=== PATIENT | male | born 1965 | race American Indian/Alaskan Native ===

== ENCOUNTER 2019-06-06 09:05 | Emergency (ER) | payer OTHER ==
[2019-06-06] MEDS ORDERED: ALTEPLASE 100 MG INJ KIT ONE (09:27)
--- NOTE | 2019-06-06 09:29 | Cat Scan Report ---
CT head without contrast INDICATION : MAIN: CODE STROKE [id number]. TECHNIQUE: Axial imaging performed from the skull apex through the skull base without the use of con trast. All CT scans at this location are performed using CT dose reduction for ALARA by means of aut omated exposure control. COMPARISON: None FINDINGS: Parenchyma: No acute intracranial hemorrhage or parenchymal abnormality. Ventricles: Ventricles are normal in size and appear symmetric. Soft tissues: Soft tissues including the orbits appear normal. Bones: No acute osseous abnormality. Sinuses: Sinuses and mastoid air cells are clear. IMPRESSION: No acute abnormality. COMMUNICATION: Time of Communication ([employer] DEPARTMENT/CDT): 8:25 am Licensed Practitioner Receiving Report: Dr. Ulloa Signer Name: Roney Atkinson MD Signed: 06/06/2019 9:25 AM Workstation Name: [id number]
--- NOTE | 2019-06-06 09:40 | Emergency Department Report ---
ED Neuro Deficit HPI - General Stated Complaint: STEMI Time Seen by Provider: 06/06/19 09:28 - History of Present Illness Initial Comments: [facility] Date of Service: 06/06/2019 08:56:45 Impression: Rule Out Acute Ischemic Stroke Left Hemispheric Infarct MCA Distribution Infarct Comments/Sign-Out: the patient's has had symptoms of confusion at least since 8:30 AM family is trying hard to determine a more refined last known normal but the patient was at work and able to drive but he arrived confused. It'll last known normal to be determined within the past 4-1/2 hours of course would consider acute thrombolytic therapy. For now we'll get stat CT angiogram of the head and neck to evaluate for possible large vessel occlusion. It sounds like the patient has had one episode in the past with similar symptoms although the diagnosis isn't 100% clear what was labeled. Metrics: Last Known Well: 06/05/2019 17:00:00 [facility] Notification Time: 06/06/2019 08:56:14 Arrival Time: 06/06/2019 09:05:30 Stamp Time: 06/06/2019 08:56:45 Time First Login Attempt: 06/06/2019 09:03:26 Video Start Time: 06/06/2019 09:03:26 Symptoms: speech disturbance R neglect NIHSS Start Assessment Time: 06/06/2019 09:15:30 Patient is not a candidate for tPA. Patient was not deemed candidate for tPA thrombolytics because of Last Well Known Above 4.5 Hours. Weight Noted by Staff: 338 lbs Video End Time: 06/06/2019 09:36:55 CT head showed no acute hemorrhage or acute core infarct. Clinical Presentation is Suggestive of Large Vessel Occlusive Disease, Recommendations are as Follows CTA Head and Neck. ED Physician notified of diagnostic impression and management plan on 06/06/2019 09:33:38 Our recommendations are outlined below. Recommendations: Activate Stroke Protocol Admission/Order Set Stroke/Telemetry Floor Neuro Checks Bedside Swallow Eval DVT Prophylaxis IV Fluids, Normal Saline Head of Bed Below 30 Degrees Euglycemia and Avoid Hyperthermia (PRN Acetaminophen) Initiate Aspirin 325 MG Daily Recommended Scan: MRI Head Echocardiogram - Transthoracic Echocardiogram Lipid Panel to Be Obtained, if Not Done in the Last 30 Days Therapies: Physical Therapy, Occupational Therapy, Speech Therapy Assessment When Applicable Dysphaghia Screen: Swallow Evaluation, Bedside NPO Until Swallow Evaluation DVT prophylaxis: Choice of Primary Team Disposition: Follow up with Teleneurology Follow up Sign Out: Discussed with Emergency Department Provider History of Present Illness: Patient is a 54 year old Male. 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 No one had talked to him throughout the restaurant shift leader with last known normal at 5 PM the night prior. They're trying to get a better timeframe by contacting his work. He has a right-sided lu-neglect with some leftward gaze and confusion. Apparently he had an episode in the past that was similar but they're not sure of the specific diagnosis. He does not take any blood thinners or antiplatelet. No history of known seizure. CT head showed no acute hemorrhage or acute core infarct. There is no history of hemorrhagic complications or intracranial hemorrhage. There is no history of Recent Anticoagulants. There is no history of recent major surgery. There is no history of recent stroke. Examination: Blood Glucose(120) 1A: Level of Consciousness - Alert; keenly responsive + 0 1B: Ask Month and Age - Aphasic + 2 1C: Blink Eyes & Squeeze Hands - Performs 0 Tasks + 2 2: Test Horizontal Extraocular Movements - Forced Gaze Palsy: Cannot Be Overcome + 2 3: Test Visual Butcher - No Visual Loss + 0 4: Test Facial Palsy (Use Grimace if Obtunded) - Normal symmetry + 0 5A: Test Left Arm Motor Drift - No Drift for 10 Seconds + 0 5B: Test Right Arm Motor Drift - No Drift for 10 Seconds + 0 6A: Test Left Leg Motor Drift - No Drift for 5 Seconds + 0 6B: Test Right Leg Motor Drift - No Drift for 5 Seconds + 0 7: Test Limb Ataxia (FNF/Heel-Wells) - No Ataxia + 0 8: Test Sensation - Normal; No sensory loss + 0 9: Test Language/Aphasia - Mute/Global Aphasia: No Usable Speech/Auditory Comprehension + 3 10: Test Dysarthria - Severe Dysarthria: Unintelligble Slurring or Out of Proportion to Aphasia + 2 11: Test Extinction/Inattention - Extinction to bilateral simultaneous stimulation + 1 NIHSS Score: 12 Patient was informed the Neurology Consult would happen via TeleHealth consult by way of interactive audio and video telecommunications and consented to receiving care in this manner. Due to the immediate potential for life-threatening deterioration due to underlying acute neurologic illness, I spent 35 minutes providing critical care. This time includes time for face to face visit via telemedicine, review of medical records, imaging studies and discussion of findings with providers, the patient and/or family. Dr Celsa Tay [facility] ADDENDUM: patient has near occlusion L MCA with thrombus not complete but recomomend transfer to [facility] patient for malignant edema and potentially to complete occlusion D/W ED MD - Related Data Allergies/Adverse Reactions: Allergies Allergy/AdvReac Type Severity Reaction Status Date / Time No Known Allergies Allergy Unverified 06/06/19 09:47 ED Review of Systems ROS: Stated complaint: STEMI Other details as noted in HPI ED Neuro Physical Exam - General Suspected Stroke: Yes - NIHSS Assessment Interval: Baseline 1a. Level of Consciousness: alert/keenly responsive 1b. LOC Questions: answers no questions correctly 1c. LOC Commands: performs no tasks correctly 2. Best Gaze: forced deviation 3. Visual: no visual loss 4. Facial Palsy: normal symmetrical movement 5b. Motor Arm Right: no drift 5a. Motor Arm Left: no drift 6a. Motor Leg Left: no drift 6b. Motor Leg Right: no drift 7. Limb Ataxia: absent 8. Sensory: normal 9. Best Language: mute/global aphasia 10. Dysarthria: mute/anarrthric 11. Extinction/Inattention: visual/tactile inattention Total Score: 12 Stroke Severity: Moderate Stroke ED Course Vital Signs 06/06/19 06/06/19 06/06/19 09:05 09:15 09:20 Temperature 98.4 F Pulse Rate 69 91 H Respiratory 18 18 Rate Blood Pressure Blood Pressure 145/60 168/114 [Right] O2 Sat by Pulse 100 100 99 Oximetry 06/06/19 06/06/19 06/06/19 09:30 09:45 10:00 Temperature Pulse Rate 97 H 69 81 Respiratory 25 H 100 H 18 Rate Blood Pressure 159/95 Blood Pressure 141/69 138/81 142/69 [Right] O2 Sat by Pulse 100 100 Oximetry 06/06/19 06/06/19 06/06/19 10:15 10:31 10:45 Temperature Pulse Rate 116 H 97 H Respiratory 15 28 H Rate Blood Pressure 159/95 135/67 138/76 Blood Pressure [Right] O2 Sat by Pulse 97 97 96 Oximetry 06/06/19 11:01 Temperature Pulse Rate 94 H Respiratory 22 Rate Blood Pressure 140/83 Blood Pressure [Right] O2 Sat by Pulse 96 Oximetry - Lab Data Result diagrams: 06/06/19 09:27 06/06/19 09:27 Lab Results 06/06/19 06/06/19 06/06/19 Range/Units 09:27 09:27 09:27 WBC 4.0 L (4.5-11.0) K/mm3 RBC 5.20 H (3.65-5.03) M/mm3 Hgb 15.2 (11.8-15.2) gm/dl Hct 45.9 H (35.5-45.6) % MCV 88 (84-94) fl MCH 29 (28-32) pg MCHC 33 (32-34) % RDW 14.7 (13.2-15.2) % Plt Count 307 (140-440) K/mm3 Lymph % (Auto) 38.1 H (13.4-35.0) % Door % (Auto) 6.8 (0.0-7.3) % Eos % (Auto) 2.7 (0.0-4.3) % Baso % (Auto) 1.2 (0.0-1.8) % Lymph # 1.5 (1.2-5.4) K/mm3 Door # 0.3 (0.0-0.8) K/mm3 Eos # 0.1 (0.0-0.4) K/mm3 Baso # 0.0 (0.0-0.1) K/mm3 Seg Neutrophils % 51.2 (40.0-70.0) % Seg Neutrophils # 2.1 (1.8-7.7) K/mm3 PT 13.5 (12.2-14.9) Sec. INR 1.02 (0.87-1.13) APTT 32.8 (24.2-36.6) Sec. Thrombin Time (15.1-19.6) Sec. Sodium 141 (137-145) mmol/L Potassium 3.9 (3.6-5.0) mmol/L Chloride 101.5 (98-107) mmol/L Carbon Dioxide 23 (22-30) mmol/L Anion Gap 20 mmol/L BUN 12 (9-20) mg/dL Creatinine 1.1 (0.8-1.5) mg/dL Estimated GFR > 60 ml/min BUN/Creatinine Ratio 11 % Glucose 129 H (75-100) mg/dL POC Glucose (70-105) Calcium 9.4 (8.4-10.2) mg/dL Troponin T < 0.010 (0.00-0.029) ng/mL 06/06/19 06/06/19 Range/Units 09:27 09:33 WBC (4.5-11.0) K/mm3 RBC (3.65-5.03) M/mm3 Hgb (11.8-15.2) gm/dl Hct (35.5-45.6) % MCV (84-94) fl MCH (28-32) pg MCHC (32-34) % RDW (13.2-15.2) % Plt Count (140-440) K/mm3 Lymph % (Auto) (13.4-35.0) % Door % (Auto) (0.0-7.3) % Eos % (Auto) (0.0-4.3) % Baso % (Auto) (0.0-1.8) % Lymph # (1.2-5.4) K/mm3 Door # (0.0-0.8) K/mm3 Eos # (0.0-0.4) K/mm3 Baso # (0.0-0.1) K/mm3 Seg Neutrophils % (40.0-70.0) % Seg Neutrophils # (1.8-7.7) K/mm3 PT (12.2-14.9) Sec. INR (0.87-1.13) APTT (24.2-36.6) Sec. Thrombin Time 18.9 (15.1-19.6) Sec. Sodium (137-145) mmol/L Potassium (3.6-5.0) mmol/L Chloride (98-107) mmol/L Carbon Dioxide (22-30) mmol/L Anion Gap mmol/L BUN (9-20) mg/dL Creatinine (0.8-1.5) mg/dL Estimated GFR ml/min BUN/Creatinine Ratio % Glucose (75-100) mg/dL POC Glucose 116 H (70-105) Calcium (8.4-10.2) mg/dL Troponin T (0.00-0.029) ng/mL Critical care attestation.: If time is entered above; I have spent that time in minutes in the direct care of this critically ill patient, excluding procedure time. ED Disposition Clinical Impression: Stroke Qualifiers: CVA mechanism: unspecified Qualified Code(s): I63.9 - Cerebral infarction, unspecified Disposition: DC/TX-70 ANOTHER TYPE HLTHCARE Is pt being admited?: No Does the pt Need Aspirin: Yes Condition: Stable
[2019-06-06] MEDS ORDERED: ASPIRIN 325 MG TAB PO ONE (09:42)
[2019-06-06 09:49] LABS: Basophils % (Auto) 1.2 % (0.0-1.8); Eosinophils # (Auto) 0.1 K/mm3 (0.0-0.4); Eosinophils % (Auto) 2.7 % (0.0-4.3); Hematocrit 45.9 % (35.5-45.6); Hemoglobin 15.2 gm/dl (11.8-15.2); Lymphocytes # (Auto) 1.5 K/mm3 (1.2-5.4); Lymphocytes % (Auto) 38.1 % (13.4-35.0); Mean Corpuscular HGB Conc 33 % (32-34); Mean Corpuscular Volume 88 fl (84-94); Monocytes # (Auto) 0.3 K/mm3 (0.0-0.8); Monocytes % (Auto) 6.8 % (0.0-7.3); Platelet Count 307 K/mm3 (140-440); Red Cell Distribution Width 14.7 % (13.2-15.2)
[2019-06-06 09:50] LABS: INR 1.02 (0.87-1.13)
[2019-06-06 09:51] LABS: Partial Thromboplastin Time 32.8 Sec. (24.2-36.6)
[2019-06-06 09:58] LABS: BUN/Creatinine Ratio 11; Blood Urea Nitrogen 12 mg/dL (9-20); Calcium 9.4 mg/dL (8.4-10.2); Hemolysis Index 5
[2019-06-06] MEDS ORDERED: ASPIRIN 300 MG RECT SUPP PR ONE ×2 (10:00→10:38)
--- NOTE | 2019-06-06 10:25 | Emergency Department Report ---
ED General Adult HPI - General Chief complaint: Neuro Symptoms/Deficit Stated complaint: STEMI Time Seen by Provider: 06/06/19 09:28 Source: patient, family, EMS Mode of arrival: Stretcher Limitations: Other - History of Present Illness Initial comments: Patient is a 54-year-old F [place] male with a past medical history of hypertension who is presenting with altered mental status. Patient was noted at this morning approximately 830 to not be able to speak. 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 His last known well time was approximately 6 PM last night. No one spoke with the patient overnight. Is unknown whether the patient was having difficulty speaking throughout his shift. When he arrived home he seemed confused and was unable to speak. He can follow some basic commands but is completely a phasic. Patient also has having some issues with his vision and appears to not be able to look from side to side well. Patient is unable to give any additional history. - Related Data Allergies Allergy/AdvReac Type Severity Reaction Status Date / Time No Known Allergies Allergy Unverified 06/06/19 09:47 ED Review of Systems ROS: Stated complaint: STEMI Other details as noted in HPI Comment: All other systems reviewed and negative ED Past Medical Hx - Past Medical History Previous Medical History?: Yes Additional medical history: hyperlipidemia - Surgical History Past Surgical History?: No - Social History Smoking Status: Never Smoker Substance Use Type: None ED Physical Exam - General Limitations: Other General appearance: alert, in no apparent distress - Head Head exam: Present: atraumatic, normocephalic - Eye Eye exam: Present: normal appearance, PERRL, EOMI - ENT ENT exam: Present: normal exam, mucous membranes moist - Neck Neck exam: Present: normal inspection - Respiratory Respiratory exam: Present: normal lung sounds bilaterally. Absent: respiratory distress, wheezes, rales, rhonchi - Cardiovascular Cardiovascular Exam: Present: regular rate, normal rhythm, normal heart sounds. Absent: systolic murmur, diastolic murmur, rubs, gallop - GI/Abdominal GI/Abdominal exam: Present: soft, normal bowel sounds. Absent: distended, tenderness, guarding, rebound - Rectal Rectal exam: Present: deferred - Extremities Exam Extremities exam: Present: normal inspection - Back Exam Back exam: Present: normal inspection - Neurological Exam Neurological exam: Present: alert, altered, other (see below). Absent: motor sensory deficit (However there is forced gaze preference to the left. Patient shows some neglect to his right arm when asked to lift his right arm he lifts his left.) - Psychiatric Psychiatric exam: Present: normal affect, normal mood - Skin Skin exam: Present: warm, dry, intact, normal color. Absent: rash - Other Other exam information: Examination: Blood Glucose(120) 1A: Level of Consciousness - Alert; keenly responsive + 0 1B: Ask Month and Age - Aphasic + 2 1C: Blink Eyes & Squeeze Hands - Performs 0 Tasks + 2 2: Test Horizontal Extraocular Movements - Forced Gaze Palsy: Cannot Be Overcome + 2 3: Test Visual Butcher - No Visual Loss + 0 4: Test Facial Palsy (Use Grimace if Obtunded) - Normal symmetry + 0 5A: Test Left Arm Motor Drift - No Drift for 10 Seconds + 0 5B: Test Right Arm Motor Drift - No Drift for 10 Seconds + 0 6A: Test Left Leg Motor Drift - No Drift for 5 Seconds + 0 6B: Test Right Leg Motor Drift - No Drift for 5 Seconds + 0 7: Test Limb Ataxia (FNF/Heel-Wells) - No Ataxia + 0 8: Test Sensation - Normal; No sensory loss + 0 9: Test Language/Aphasia - Mute/Global Aphasia: No Usable Speech/Auditory Comprehension + 3 10: Test Dysarthria - Severe Dysarthria: Unintelligble Slurring or Out of Proportion to Aphasia + 2 11: Test Extinction/Inattention - Extinction to bilateral simultaneous stimulation + 1 NIHSS Score: 12 ED Course Vital Signs 06/06/19 06/06/19 06/06/19 09:05 09:15 09:20 Temperature 98.4 F Pulse Rate 69 91 H Respiratory 18 18 Rate Blood Pressure Blood Pressure 145/60 168/114 [Right] O2 Sat by Pulse 100 100 99 Oximetry 06/06/19 06/06/19 06/06/19 09:30 09:45 10:00 Temperature Pulse Rate 97 H 69 81 Respiratory 25 H 100 H 18 Rate Blood Pressure 159/95 Blood Pressure 141/69 138/81 142/69 [Right] O2 Sat by Pulse 100 100 Oximetry 06/06/19 06/06/19 06/06/19 10:15 10:31 10:45 Temperature Pulse Rate 116 H 97 H Respiratory 15 28 H Rate Blood Pressure 159/95 135/67 138/76 Blood Pressure [Right] O2 Sat by Pulse 97 97 96 Oximetry 06/06/19 06/06/19 06/06/19 11:01 11:15 11:30 Temperature Pulse Rate 94 H 87 90 Respiratory 22 17 16 Rate Blood Pressure 140/83 148/86 148/86 Blood Pressure [Right] O2 Sat by Pulse 96 97 97 Oximetry 06/06/19 06/06/19 11:45 12:01 Temperature Pulse Rate 84 83 Respiratory 21 21 Rate Blood Pressure 147/86 Blood Pressure [Right] O2 Sat by Pulse 97 97 Oximetry - Reevaluation(s) Reevaluation #1: 06/06/19 10:56 Tele neurologist called and stated that there appeared to be a near complete occlusion to the left MCA. [facility] has been consulted for possible intervention. They are reviewing the patient's CTA at this time. Reevaluation #2: 06/06/19 11:42 with the [facility] interventionalists team states that he lifted the patient CTA and does see a occlusion however there is also ischemic changes present as well. This places the patient outside of the window for acute intervention since the stroke is already manifested itself on CT. At this time patient will be presented to the [facility] hospitalist hardware installation coordinator to determine the location of the patient's admission Reevaluation #3: 06/06/19 12:41 Patient has been accepted to [facility] per the request of [facility] insurance. ED Medical Decision Making - Lab Data Result diagrams: 06/06/19 09:27 06/06/19 09:27 Lab Results 06/06/19 06/06/19 06/06/19 Range/Units 09:27 09:27 09:27 WBC 4.0 L (4.5-11.0) K/mm3 RBC 5.20 H (3.65-5.03) M/mm3 Hgb 15.2 (11.8-15.2) gm/dl Hct 45.9 H (35.5-45.6) % MCV 88 (84-94) fl MCH 29 (28-32) pg MCHC 33 (32-34) % RDW 14.7 (13.2-15.2) % Plt Count 307 (140-440) K/mm3 Lymph % (Auto) 38.1 H (13.4-35.0) % Cross % (Auto) 6.8 (0.0-7.3) % Eos % (Auto) 2.7 (0.0-4.3) % Baso % (Auto) 1.2 (0.0-1.8) % Lymph # 1.5 (1.2-5.4) K/mm3 Cross # 0.3 (0.0-0.8) K/mm3 Eos # 0.1 (0.0-0.4) K/mm3 Baso # 0.0 (0.0-0.1) K/mm3 Seg Neutrophils % 51.2 (40.0-70.0) % Seg Neutrophils # 2.1 (1.8-7.7) K/mm3 PT 13.5 (12.2-14.9) Sec. INR 1.02 (0.87-1.13) APTT 32.8 (24.2-36.6) Sec. Thrombin Time (15.1-19.6) Sec. Sodium 141 (137-145) mmol/L Potassium 3.9 (3.6-5.0) mmol/L Chloride 101.5 (98-107) mmol/L Carbon Dioxide 23 (22-30) mmol/L Anion Gap 20 mmol/L BUN 12 (9-20) mg/dL Creatinine 1.1 (0.8-1.5) mg/dL Estimated GFR > 60 ml/min BUN/Creatinine Ratio 11 % Glucose 129 H (75-100) mg/dL POC Glucose (70-105) Calcium 9.4 (8.4-10.2) mg/dL Troponin T < 0.010 (0.00-0.029) ng/mL 06/06/19 06/06/19 Range/Units 09:27 09:33 WBC (4.5-11.0) K/mm3 RBC (3.65-5.03) M/mm3 Hgb (11.8-15.2) gm/dl Hct (35.5-45.6) % MCV (84-94) fl MCH (28-32) pg MCHC (32-34) % RDW (13.2-15.2) % Plt Count (140-440) K/mm3 Lymph % (Auto) (13.4-35.0) % Cross % (Auto) (0.0-7.3) % Eos % (Auto) (0.0-4.3) % Baso % (Auto) (0.0-1.8) % Lymph # (1.2-5.4) K/mm3 Cross # (0.0-0.8) K/mm3 Eos # (0.0-0.4) K/mm3 Baso # (0.0-0.1) K/mm3 Seg Neutrophils % (40.0-70.0) % Seg Neutrophils # (1.8-7.7) K/mm3 PT (12.2-14.9) Sec. INR (0.87-1.13) APTT (24.2-36.6) Sec. Thrombin Time 18.9 (15.1-19.6) Sec. Sodium (137-145) mmol/L Potassium (3.6-5.0) mmol/L Chloride (98-107) mmol/L Carbon Dioxide (22-30) mmol/L Anion Gap mmol/L BUN (9-20) mg/dL Creatinine (0.8-1.5) mg/dL Estimated GFR ml/min BUN/Creatinine Ratio % Glucose (75-100) mg/dL POC Glucose 116 H (70-105) Calcium (8.4-10.2) mg/dL Troponin T (0.00-0.029) ng/mL - EKG Data -: EKG Interpreted by Ar - EKG Data 06/06/19 12:41 EKG shows sinus rhythm at a rate of 89. The axis is rightward intervals are otherwise normal. There is no ST segment elevation or depression. Time of interpretation 932 - Radiology Data CT head without contrast INDICATION : MAIN: CODE STROKE [phone]. TECHNIQUE: Axial imaging performed from the skull apex through the skull base without the use of contrast. All CT scans at this location are performed using CT dose reduction for ALARA by means of automated exposure control. COMPARISON: None FINDINGS: Parenchyma: No acute intracranial hemorrhage or parenchymal abnormality. Ventricles: Ventricles are normal in size and appear symmetric. Soft tissues: Soft tissues including the orbits appear normal. Bones: No acute osseous abnormality. Sinuses: Sinuses and mastoid air cells are clear. IMPRESSION: No acute abnormality. COMMUNICATION: Time of Communication (GLUE MAKER/CDT): 8:25 am Licensed Practitioner Receiving Report: Dr. Ulloa Signer Name: Roney Atkinson MD Signed: 06/06/2019 9:25 AM Workstation Name: [id number] CT angio head INDICATION / CLINICAL INFORMATION: 54 years Male; complete aphasia. TECHNIQUE: Thin cut axial images obtained through the head during IV bolus contrast administration. Sagittal, coronal, and 3 plane MIP reconstructions performed by the technologist. NASCET type criteria used evaluate stenoses. Automated exposure control utilized for radiation reduction purposes. COMPARISON: None available. FINDINGS: INTERNAL CAROTID ARTERIES: No significant narrowing appreciated. VERTEBROBASILAR SYSTEM: No significant narrowing appreciated. DISTAL BRANCHES: Distal branches of the anterior, middle, and posterior cerebral arteries are fairly symmetric in appearance and number. However, there is evidence of near complete occlusion of the sylvian fissure branch on the left and more peripheral branches extending into the expected location of the posterior frontal lobe/central sulcus region. Early ischemic changes are seen in these locations as well as the lateral gangliocapsular region on the left. ANEURYSM: None identified. ADDITIONAL FINDINGS: Prominent soft tissue is seen in the roof the nasopharynx, presumably related to reactive adenoidal tissue. Please clinically correlate. IMPRESSION: Near occlusive thrombus seen in a sylvian fissure branch on the left with absence of visualization of more peripheral branches in the left frontoparietal region as described above. Signer Name: Dylan Pritchard MD, III Signed: 06/06/2019 9:51 AM Workstation Name: [id number] CTA of the neck shows no acute abnormality Critical Care Time: Yes (30) Critical care attestation.: If time is entered above; I have spent that time in minutes in the direct care of this critically ill patient, excluding procedure time. ED Disposition Clinical Impression: Stroke Qualifiers: CVA mechanism: occlusion Precerebral and cerebral artery: middle cerebral artery Laterality of affected vessel: left Qualified Code(s): I63.512 - Cerebral infarction due to unspecified occlusion or stenosis of left middle cerebral artery Disposition: DC/TX-70 ANOTHER TYPE HLTHCARE Is pt being admited?: No Does the pt Need Aspirin: No Condition: Stable Time of Disposition: 12:42
--- NOTE | 2019-06-06 10:55 | Cat Scan Report ---
CT angio head INDICATION / CLINICAL INFORMATION: 54 years Male; complete aphasia. TECHNIQUE: Thin cut axial images obtained through the head during IV bolus contrast administration. S agittal, coronal, and 3 plane MIP reconstructions performed by the technologist. NASCET type criteria used evaluate stenoses. Automated exposure control utilized for radiation reduction purposes. COMPARISON: None available. FINDINGS: INTERNAL CAROTID ARTERIES: No significant narrowing appreciated. VERTEBROBASILAR SYSTEM: No significant narrowing appreciated. DISTAL BRANCHES: Distal branches of the anterior, middle, and posterior cerebral arteries are fairly symmetric in appearance and number. However, there is evidence of near complete occlusion of the sylv mallory fissure branch on the left and more peripheral branches extending into the expected location of t he posterior frontal lobe/central sulcus region. Early ischemic changes are seen in these locations a s well as the lateral gangliocapsular region on the left. ANEURYSM: None identified. ADDITIONAL FINDINGS: Prominent soft tissue is seen in the roof the nasopharynx, presumably related to reactive adenoidal tissue. Please clinically correlate. IMPRESSION: Near occlusive thrombus seen in a sylvian fissure branch on the left with absence of visualization of more peripheral branches in the left frontoparietal region as described above. Signer Name: Dylan Pritchard MD, III Signed: 06/06/2019 10:51 AM Workstation Name: [id number]
--- NOTE | 2019-06-06 11:12 | Cat Scan Report ---
NECK CT ANGIOGRAM 06/06/2019 HISTORY: Speech disturbance FINDINGS: Contrast-enhanced CT angiographic images of the neck were obtained. In addition to the axia l images, sagittal and coronal reformatted images were obtained. In addition, 3 plane MIP reconstruct ions were produced. NASCET like criteria were used in this evaluation. There is a normal appearance to the carotid bifurcations. There is some mild atherosclerotic vascular calcifications present, with no evidence of stenosis. Vertebral artery contours demonstrate no evidence of acute abnormality. Vertebral arteries are relati vely hypoplastic bilaterally, in a pattern consistent with normal anatomic variation. IMPRESSION: No significant abnormality. All CT scans at this location are performed using dose reduction to ALARA by means of automated expos ure control. Signer Name: Klye Maxwell MD Signed: 06/06/2019 11:08 AM Workstation Name: [id number]
[2019-06-06 18:37] VITALS: BP 140/95
== END 2019-06-06 17:48 | disposition other institution (70) ==
LOC: ED 09:05
DX: I63.512 Cerebral infarction due to unspecified occlusion or stenosis of left middle cerebral artery (principal)
CPT/HCPCS: 36415; 70450; 70496; 70498; 80048; 82962; 84484; 85025; 85610; 85670; 85730; 92610; 93005; 93010; 99291; Q9967; J2997